=== PATIENT | female | born 1950 | race Caucasian/White ===

== ENCOUNTER → 2018-01-02 | Outpatient (CLI) | payer MEDICARE, OTHER ==
[~2018-01-02] MED LIST: AMOXICILLIN500 M1 PO; AXERT12.5 MG PO; BLADDER 2.2 TA1 EACH; CALCIUM +D & M1 EACH; HYDROCODON-ACE1 EACH; NORCO 5-325 TA1 EACH PO; PERCOCET 5-3251 EACH PO; PREDNISONE 20 M20 MG PO
[2018-01-02 09:31] LABS: CREATININE 0.7 mg/dL (0.6-1.3)
== END ==
LOC: M.LAB 09:00 → M.CT 10:00
PROVIDERS: Internal Medicine
DX: I71.2 Thoracic aortic aneurysm, without rupture (principal); K76.0 Fatty (change of) liver, not elsewhere classified; Z90.49 Acquired absence of other specified parts of digestive tract

== ENCOUNTER → 2018-06-24 | Outpatient (CLI) | payer MEDICARE, OTHER | LOC: M.RAD 10:20 | DX: Z12.31 Encounter for screening mammogram for malignant neoplasm of breast (principal) ==

== ENCOUNTER → 2019-12-31 | Outpatient (CLI) | payer MEDICARE, OTHER ==
[2019-12-31 08:27] LABS: CREATININE 0.8 mg/dL (0.6-1.3)
== END ==
LOC: M.LAB 07:57 → M.CT 09:00
PROVIDERS: ATTEND Internal Medicine
DX: Z12.31 Encounter for screening mammogram for malignant neoplasm of breast (principal); Z01.812 Encounter for preprocedural laboratory examination; I71.2 Thoracic aortic aneurysm, without rupture; I10 Essential (primary) hypertension; J98.11 Atelectasis; K76.89 Other specified diseases of liver; K57.30 Diverticulosis of large intestine without perforation or abscess without bleeding